=== PATIENT | male | born 1965 | race Caucasian/White ===

== ENCOUNTER → 2022-08-11 | Day surgery (SDC) | payer BC | LOC: MSO 08:54 | DX: Z12.11 Encounter for screening for malignant neoplasm of colon (principal); K57.30 Diverticulosis of large intestine without perforation or abscess without bleeding; E11.9 Type 2 diabetes mellitus without complications; Z87.891 Personal history of nicotine dependence; Z80.0 Family history of malignant neoplasm of digestive organs | CPT/HCPCS: 00812; J2704; J7120 ==